=== PATIENT | female | born 1995 | race Caucasian/White ===

== ENCOUNTER 2022-12-23 12:12 | Day surgery (SDC) | payer OTHER ==
[~2022-12-23] VITALS: Ht 157.5 cm; Wt 66.2 kg
[~2022-12-23 12:12] MED LIST: ETON1VAG7 VA; NS 1,000 ML IV ONE
[2022-12-23] MEDS ORDERED: fentaNYL 100 MCG/2 ML INJECTION As Ordered ONE (13:50)
[2022-12-23] MEDS ORDERED: propofoL 200 MG/20 ML VIAL As Ordered ONE (13:50)
[2022-12-23] MEDS ORDERED: LIDOCAINE 2% 100MG/5ML SDV (FOR ANES.) As Ordered ONE (15:31)
[2022-12-23 16:07] VITALS: BP 131/87
== END 2022-12-23 16:08 | disposition home or self-care (01) ==
LOC: M OPP 12:12
PROVIDERS: ATTEND Internal Medicine Gastroenterology
DX: R13.10 Dysphagia, unspecified (principal)
CPT/HCPCS: 43249; J3010